=== PATIENT | male | born 1970 | race Caucasian/White ===

== ENCOUNTER 2018-04-14 20:36 | Emergency (ER) | payer SELFPAY ==
[~2018-04-14] VITALS: Ht 172.7 cm; Wt 93.0 kg
--- NOTE | 2018-04-14 21:04 | NUR ---
PT'S NAME CALLED 3 TIMES IN WAITING ROOM, NO RESPONSE. WILL TRY AGAIN. MADE AWARE
--- NOTE | 2018-04-14 21:15 | NUR ---
to bed 11 ambulatory c/o abdominal pain with n/v x4 hrs. pt aaox4 no acute distress noted, resp even and unlabored. pending er md jefferson.
[2018-04-14 21:37] LABS: BASOPHILS % (AUTO) 0.2 % (0.0-2.0); EOSINOPHILS % (AUTO) 0.3 % (0.0-6.0); HEMATOCRIT 48 % (39-51); HEMOGLOBIN 16.4 g/dL (13.5-17.5); LYMPHOCYTES % (AUTO) 29.3 % (20.0-44.0); MEAN CORPUSCULAR HGB CONC 34 g/dl (31.0-36.0); MEAN CORPUSCULAR VOLUME 98 fL (80-96); MONOCYTES # (AUTO) 0.5 /CMM (0.1-1.30); MONOCYTES % (AUTO) 6.8 % (2.0-12.0); NEUTROPHILS # (AUTO) 4.4 /CMM (1.8-8.9); NEUTROPHILS % (AUTO) 63.4 % (43.0-81.0); PLATELET COUNT (AUTO) 219 /CMM (150-450); RED BLOOD CELL COUNT(AUTO) 4.92 MIL/uL (4.5-6.0); WHITE BLOOD COUNT (AUTO) 6.9 K/uL (4.3-11.0)
[2018-04-14 21:44] LABS: APPEARANCE,URINE CLEAR (CLEAR); BILIRUBIN,URINE 1+ (NEGATIVE); BLOOD, URINE TRACE-INTA Ery/uL (NEGATIVE); KETONES,URINE TRACE (NEGATIVE); LEUKOCYTE ESTERASE ,URINE NEGATIVE (NEGATIVE); NITRITE, URINE NEGATIVE (NEGATIVE); PROTEIN,URINE TRACE mg/dl (NEGATIVE); UGLUCOSE NEGATIVE (NEGATIVE)
[2018-04-14 21:45] LABS: COLOR,URINE DARK YELLOW (YELLOW)
[2018-04-14 21:47] LABS: BACTERIA,URINE Few /HPF (None Seen); SQUAMOUS EPITHELIAL CELL,UR Few /HPF (None Seen)
[2018-04-14 21:48] LABS: MUCUS,URINE Few /LPF (None Seen)
[2018-04-14 21:58] LABS: CALCIUM, SERUM 8.9 mg/dL (8.5-10.1); CREATININE 1.4 mg/dL (0.6-1.3); POTASSIUM 4.5 mmol/L (3.5-5.1)
[2018-04-14] MEDS ORDERED: IV NS 0.9% 1,000 ML BAG IV ONE (22:00)
[2018-04-14] MEDS ORDERED: ONDANSETRON HCL/PF 4 MG/2 ML VIAL IVP ONE (22:00)
[2018-04-14] MEDS ORDERED: MORPHINE SULFATE INJ 2 MG/ML DISP.SYRIN IV ONE (22:00)
[2018-04-14 22:04] LABS: ALBUMIN 3.6 g/dL (3.4-5.0); BILIRUBIN,DIRECT 0.1 mg/dL (0.0-0.2); BILIRUBIN,TOTAL 0.4 mg/dL (0.2-1.0); TOTAL PROTEIN, SERUM 7.9 g/dL (6.4-8.2)
--- NOTE | 2018-04-14 22:32 | NUR ---
pt asleep, no acute distress noted, resp even and unlabored. call light within reach. will continue to monitor pt closely.
[2018-04-14] MEDS ORDERED: MORPHINE SULFATE INJ 4 MG/ML DISP.SYRIN ONE (23:27)
[2018-04-14] MEDS ORDERED: ONDANSETRON HCL/PF 4 MG/2 ML VIAL ONE (23:27)
--- NOTE | 2018-04-14 23:34 | NUR ---
pt back from radiology. pending ct abd/pelvis result.
--- NOTE | 2018-04-14 23:49 | NUR ---
pt medicated by rn per er md order.
[2018-04-15 00:49] VITALS: BP 124/79
--- NOTE | 2018-04-15 00:49 | NUR ---
IV removed. Catheter intact and site benign. Pressure and 4x4 applied to site. No bleeding noted. ambulatory with a steady gait noted. pt aaox4 no acute distress noted, resp even and unlabored. Patient discharged to home in stable condition. Written and verbal after care instructions given. Patient verbalizes understanding of instruction.advice pt not to drive or operate any machinery due to pt was given narcotic medicine. pt verbalize underastanding.
== END 2018-04-15 00:51 | disposition home or self-care (01) ==
LOC: ER 20:36
DX: R10.11 Right upper quadrant pain (principal); R11.2 Nausea with vomiting, unspecified; R19.7 Diarrhea, unspecified; I10 Essential (primary) hypertension; K21.9 Gastro-esophageal reflux disease without esophagitis; Z90.89 Acquired absence of other organs
CPT/HCPCS: 36415; 74176; 80048; 80076; 81001; 83690; 85025; 87086; 96361; 96374; 96375; 99285; A4606; J2270; J2405; J7030; Z7610; 81000-TC

== ENCOUNTER 2021-04-15 17:07 | Emergency (ER) | payer BC, MEDICAID ==
[~2021-04-15] VITALS: Ht 172.7 cm; Wt 90.7 kg
[2021-04-15 17:20] VITALS: BP 131/83
[2021-04-15] MEDS ORDERED: IBUPROFEN 600 MG TABLET PO ONE (17:30)
--- NOTE | 2021-04-15 17:30 | NUR ---
THE PATIENT BIBS FOR C/O RT THUMB INJURY. RATES PAIN 5/10. WILL CONTINUE TO MONITOR THE PATIENT.
[2021-04-15] MEDS ORDERED: IBUPROFEN 600 MG TABLET ONE (17:42)
[2021-04-15] MEDS ORDERED: NAPR-996 PO (18:00)
--- NOTE | 2021-04-15 18:22 | NUR ---
Patient discharged to home in stable condition. Written and verbal after care instructions given. Patient verbalizes understanding of instruction. Pt provided with radiology imaging.
== END 2021-04-15 18:24 | disposition home or self-care (01) ==
LOC: ER 17:12
DX: S62.231A Other displaced fracture of base of first metacarpal bone, right hand, initial encounter for closed fracture (principal); S62.316A Displaced fracture of base of fifth metacarpal bone, right hand, initial encounter for closed fracture; I10 Essential (primary) hypertension; K21.9 Gastro-esophageal reflux disease without esophagitis; Z90.89 Acquired absence of other organs; W50.0XXA Accidental hit or strike by another person, initial encounter; Y93.89 Activity, other specified; Y92.89 Other specified places as the place of occurrence of the external cause; Y99.8 Other external cause status
CPT/HCPCS: 73110; 73130-TC

== ENCOUNTER 2021-12-17 16:12 | Emergency (ER) | payer MEDICAID ==
[~2021-12-17] VITALS: Ht 172.7 cm; Wt 88.5 kg
[~2021-12-17 16:12] MED LIST: NAPR-996 PO
--- NOTE | 2021-12-17 16:53 | NUR ---
DR AL AT BEDSIDE FOR EVAL
--- NOTE | 2021-12-17 18:43 | NUR ---
CALLED [phone] WILL SEND OUT A UNIT.
[2021-12-17 18:52] VITALS: BP 135/72
--- NOTE | 2021-12-17 18:52 | NUR ---
Patient discharged to home in stable condition. Written and verbal after care instructions given. Patient verbalizes understanding of instruction.
== END 2021-12-17 18:52 | disposition home or self-care (01) ==
LOC: ER 16:14
DX: S01.01XA Laceration without foreign body of scalp, initial encounter (principal); I10 Essential (primary) hypertension; K21.9 Gastro-esophageal reflux disease without esophagitis; Z87.19 Personal history of other diseases of the digestive system; Z90.89 Acquired absence of other organs; Z79.1 Long term (current) use of non-steroidal anti-inflammatories (NSAID); Y04.2XXA Assault by strike against or bumped into by another person, initial encounter; Y93.89 Activity, other specified; Y92.89 Other specified places as the place of occurrence of the external cause; Y99.8 Other external cause status
CPT/HCPCS: 12001; 70450; 99284; A6403 ×2

== ENCOUNTER 2023-03-12 11:51 | Emergency (ER) | payer MEDICAID ==
[~2023-03-12] VITALS: Ht 172.7 cm; Wt 88.5 kg
[2023-03-12 12:05] VITALS: BP 124/76
--- NOTE | 2023-03-12 12:05 | NUR ---
R INDEX FINGER PAIN AND SWELLING X 1 WEEK
[2023-03-12] MEDS ORDERED: LIDOCAINE 1% INJ 50 ML MDV IJ ONE ×2 (12:36→13:00)
[2023-03-12] MEDS ORDERED: BACI/NEOM/POLY B OINT PKT 1 UDPKT PACKET TP ONE (13:00)
[2023-03-12] MEDS ORDERED: AMOX-430 PO (14:28)
[2023-03-12] MEDS ORDERED: IBUP-1955 PO (14:28)
[2023-03-12] MEDS ORDERED: DOXY100C2 PO (14:28)
== END 2023-03-12 15:31 | disposition home or self-care (01) ==
LOC: ER 11:56
DX: L03.011 Cellulitis of right finger (principal); I10 Essential (primary) hypertension; K21.9 Gastro-esophageal reflux disease without esophagitis; Z90.89 Acquired absence of other organs; Z60.2 Problems related to living alone
CPT/HCPCS: 26011; 99284; 73140; J3490; A6403

== ENCOUNTER 2023-03-14 23:53 | Emergency (ER) | payer MEDICAID ==
[~2023-03-14] VITALS: Ht 172.7 cm; Wt 88.5 kg
[~2023-03-14 23:53] MED LIST changes: +AMOX-430 PO; +DOXY100C2 PO; +IBUP-1955 PO
--- NOTE | 2023-03-15 01:06 | NUR ---
BIBSELF FROM HOME C/O INCREASING R 2ND DIGIT SWELLING SINCE 03/10. I&D 03/11 WITH PO ABX, C/O WORSTENING SYMPTOMS. AWAKE AND ALERT X4 RR EVEN AND UNLABORED.
--- NOTE | 2023-03-15 01:28 | NUR ---
I&D DONE BY DR DEL ROSARIO DO
--- NOTE | 2023-03-15 01:50 | NUR ---
Patient discharged to home in stable condition. Written and verbal after care instructions given. Patient verbalizes understanding of instruction.
[2023-03-15 01:52] VITALS: BP 154/98
== END 2023-03-15 01:52 | disposition home or self-care (01) ==
LOC: ER 23:56
DX: L03.011 Cellulitis of right finger (principal); I10 Essential (primary) hypertension; K21.9 Gastro-esophageal reflux disease without esophagitis; Z90.89 Acquired absence of other organs; Z60.2 Problems related to living alone; Z79.899 Other long term (current) drug therapy
CPT/HCPCS: 99282; 10060; A6403

== ENCOUNTER 2023-08-27 03:53 | Emergency (ER) | payer MEDICAID ==
[~2023-08-27] VITALS: Ht 172.7 cm; Wt 90.7 kg
[2023-08-27] MEDS ORDERED: MORPHINE SULFATE INJ 4 MG/ML DISP.SYRIN ONE (04:30)
[2023-08-27] MEDS ORDERED: TDAP [DIPH/PERTUSSIS/TET] 0.5 ML VIAL IM ONE (04:30)
[2023-08-27] MEDS: TDAP [DIPH/PERTUSSIS/TET] 0.5 ML VIAL IM ONE (04:41)
[2023-08-27] MEDS: MORPHINE SULFATE INJ 2 MG/ML DISP.SYRIN IM ONE (04:42)
[2023-08-27 05:13] VITALS: BP 137/86; TEMP 96.4; O2SAT 97
== END 2023-08-27 05:15 | disposition home or self-care (01) ==
LOC: ER 03:57
DX: S61.102A Unspecified open wound of left thumb with damage to nail, initial encounter (principal); I10 Essential (primary) hypertension; K21.9 Gastro-esophageal reflux disease without esophagitis; Z90.89 Acquired absence of other organs; Z60.2 Problems related to living alone; W01.0XXA Fall on same level from slipping, tripping and stumbling without subsequent striking against object, initial encounter; Y93.89 Activity, other specified; Y92.89 Other specified places as the place of occurrence of the external cause; Y99.8 Other external cause status
CPT/HCPCS: 99284; 96372; 90471; 90715; J2270

== ENCOUNTER 2024-03-23 15:18 | Emergency (ER) | payer MEDICAID ==
[~2024-03-23] VITALS: Ht 172.7 cm; Wt 86.2 kg
[2024-03-23 15:54] VITALS: BP 153/91; TEMP 98.5
[2024-03-23] MEDS ORDERED: HYDROCODONE/APAP 5/325MG TABLET ONE (16:45)
[2024-03-23] MEDS ORDERED: IBUPROFEN 600 MG TABLET ONE (16:45)
[2024-03-23] MEDS: HYDROCODONE/APAP 5/325MG TABLET PO ONE (16:49)
[2024-03-23] MEDS: IBUPROFEN 600 MG TABLET PO ONE (16:49)
[2024-03-23] MEDS ORDERED: IBUP-1955 PO (17:52)
[2024-03-23] MEDS ORDERED: HYDR-4303 PO (17:52)
[2024-03-23] MEDS ORDERED: ACET-2605 PO (17:52)
[2024-03-23 17:53] VITALS: O2SAT 98
== END 2024-03-23 18:30 | disposition home or self-care (01) ==
LOC: ER 15:21
DX: S62.645A Nondisplaced fracture of proximal phalanx of left ring finger, initial encounter for closed fracture (principal); I10 Essential (primary) hypertension; K21.9 Gastro-esophageal reflux disease without esophagitis; Z90.49 Acquired absence of other specified parts of digestive tract; Z60.2 Problems related to living alone; Z87.19 Personal history of other diseases of the digestive system; X58.XXXA Exposure to other specified factors, initial encounter; Y93.89 Activity, other specified; Y92.89 Other specified places as the place of occurrence of the external cause; Y99.8 Other external cause status
CPT/HCPCS: 73140-TC